=== PATIENT | female | born 1965 | race Caucasian/White ===

== ENCOUNTER 2019-10-10 06:59 | Emergency (ER) | payer OTHER ==
[~2019-10-10] VITALS: Ht 157.5 cm; Wt 72.6 kg
[2019-10-10 07:31] LABS: HEMATOCRIT 49.5 % (37.0-47.0); HEMOGLOBIN 13.6 gm/dL (12.0-15.0); MCH 25.9 pg (26.0-34.0); MCHC 27.6 g/dL (28.0-37.0); MCV 93.9 fL (80.0-100.0); PLATELET COUNT 370 thou/uL (150-400); RBC 5.27 mil/uL (4.20-5.00); RDW 18.1 % (10.5-14.5); WBC 7.2 thou/uL (4.0-11.0)
[2019-10-10 07:32] VITALS: BP 67/29
[2019-10-10 07:46] LABS: ALBUMIN 2.6 g/dL (3.4-5.0); BUN 171 mg/dL (7-18); CALCIUM 9.2 mg/dL (8.5-10.1); CHLORIDE 91 mmol/L (98-107); CREATININE 11.9 mg/dL (0.6-1.0); SGOT 23 U/L (15-37); SGPT 16 U/L (30-65); SODIUM 128 mmol/L (136-145); TOTAL BILIRUBIN 0.5 mg/dL (<0.1-1.0); TROPONIN-I <0.06 ng/mL (<0.06)
[2019-10-10 07:47] LABS: INR 1.2; PROTIME 12.7 Seconds (9.3-11.4)
[2019-10-10 07:49] LABS: ANION GAP 32 mmol/L (7-16)
[2019-10-10 07:51] LABS: CO2 < 5 mmol/L (21-32); GLUCOSE 506 mg/dL (74-106); POTASSIUM 8.9 mmol/L (3.5-5.1)
[2019-10-10 08:03] LABS: APTT 83.9 Seconds (24.5-32.8)
[2019-10-10 08:38] LABS: ABSOLUTE NEUTROPHILS 3.1 thou/uL (1.4-8.2); PLATELET ESTIMATE NORMAL
--- NOTE | 2019-10-10 16:28 | EKG ---
[facility] [place] [address] ELECTROCARDIOGRAM REPORT Name: DARIUSZ BLACK Room #: [facility] [id number] Admission: 10/10/19 Attend Phys: Discharge: Date of : 61 Report #: [id number] THIS REPORT FOR: cc: NO FAMILY PHYSICIAN or PCP FAM - No family physician/PCP Haroldo Plunkett MD ~ THIS REPORT FOR: //name// 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: LILIBETH : 1965 Requested By: Chanelle Rosen Order Number: [id number] MD: Haroldo Plunkett Measurements Intervals [place] Rate: 106 P: LA: QRS: 233 QRSD: 165 T: 28 QT: 474 QTc: 630 Interpretive Statements Atrial fibrillation Nonspecific intraventricular conduction delay Inferior infarct, old Consider anterior infarct Artifact in lead(s) I,II,III,aVR,aVL,aVF No previous ECG available for comparison Electronically Signed On 10-10-2019 16:27:46 SUPPLY MANAGER by Haroldo Plunkett [email or web address] <ELECTRONICALLY SIGNED> By: Haroldo Plunkett MD 10/10/19 1627 4 Haroldo Plunkett MD /EPI
[2019-10-11 00:10] LABS: HBsAG-EMPLOYEE EXPOSURE Negative (Negative); HCV AB-EMPLOYEE EXPOSURE <0.1 (0.0-0.9)
== END 2019-10-10 08:11 ==
LOC: ER 06:59
PROVIDERS: Student in an Organized Health Care Education/Training Program
DX: I46.9 Cardiac arrest, cause unspecified (principal); N17.9 Acute kidney failure, unspecified; E11.10 Type 2 diabetes mellitus with ketoacidosis without coma; E87.5 Hyperkalemia; E87.2 Acidosis; R11.2 Nausea with vomiting, unspecified; I12.9 Hypertensive chronic kidney disease with stage 1 through stage 4 chronic kidney disease, or unspecified chronic kidney disease; E11.22 Type 2 diabetes mellitus with diabetic chronic kidney disease; N18.4 Chronic kidney disease, stage 4 (severe)